=== PATIENT | female | born 1990 | race Caucasian/White ===

== ENCOUNTER → 2018-07-12 | Outpatient (CLI) | payer OTHER ==
--- NOTE | 2018-07-12 11:41 | USB ---
Reason for exam: clinical finding. History: Took hormonal contraceptives beginning at age 17. Indicated problem(s): palpable abnormality, lump or thickening, and large axillary lymph nodes in the right breast. Physical Findings: Nurse Summary: 0.25cm at 3 o'clock, 1.5cm at 10 o'clock, enlarged axilla lymph nod (nurse dw). US Breast RT Right complete breast ultrasound includes all four quadrants, the retroareolar region and axilla. Finding demonstrates a 7 x 3 x 8mm oval, cystic lesion at 3 o'clock BB. Two lymph nodes visualized at right axilla, largest measuring 2.0 x 0.7 x 0.7cm. These results were verbally communicated with the patient and result sheet given to the patient on 07/12/18. ASSESSMENT: Benign, BI-RAD 2 RECOMMENDATION: Routine screening mammogram of both breasts at age 41. Manage patient on a clinical basis.
== END | disposition home or self-care (01) ==
LOC: RADUSWWP 10:48
PROVIDERS: ATTEND Obstetrics & Gynecology
DX: N60.01 Solitary cyst of right breast (principal)

== ENCOUNTER 2019-01-22 13:24 | Inpatient (IN) | payer OTHER ==
[2019-01-29] MEDS ORDERED: LIDOCAINE 0.5% (PF) 5 MG/ML (50 ML SDV) SQ PRN (06:29)
[2019-01-29] MEDS ORDERED: TERBUTALINE 1 MG/ML VIAL SQ PRN (06:29)
[2019-01-29] MEDS ORDERED: OXYTOCIN 10 UNIT/ML 1 ML VIAL IM PRN (06:29)
[2019-01-29] MEDS ORDERED: CARBOPROST TROMETHAMINE 250 MCG/ML 1 ML AMP IM PRN (06:29)
[2019-01-29] MEDS ORDERED: METHYLERGONOVINE 0.2 MG/ML 1 ML AMP IM PRN (06:29)
[2019-01-29] MEDS ORDERED: OXYTOCIN 30 UNITS/500 ML NS 30 UNIT in SALINE 1 500ML.BAG IV SCH (06:30)
[2019-01-29 06:41] VITALS: BMI 26.4
[2019-01-29 06:48] LABS: Basophils # (A) 0.1 k/uL (0-0.2); Basophils % (A) 1 %; Eosinophils # (A) 0.2 k/uL (0-0.7); Eosinophils % (A) 2 %; HCT 38.4 % (34.0-46.0); HGB 12.8 gm/dL (11.4-16.0); Lymphocytes # (A) 1.9 k/uL (1.0-4.8); Lymphocytes % (A) 20 %; MCH 29.7 pg (25.0-35.0); MCHC 33.2 g/dL (31.0-37.0); MCV 89.5 fL (80.0-100.0); Mean Platelet Volume 8.9; Monocytes # (A) 0.5 k/uL (0-1.0); Monocytes % (A) 5 %; Neutrophils % (A) 71 %; Platelet Count 139 k/uL (150-450); RDW 14.1 % (11.5-15.5); WBC 9.9 k/uL (3.8-10.6)
[2019-01-29] MEDS: LACTATED RINGERS 1,000 ML IV SCH ×2 (06:52→14:00)
--- NOTE | 2019-01-29 07:58 | P.HPOB ---
History of Present Illness H&P Date: 01/29/19 Chief Complaint: Postdates This is a 28-year-old 1 para 0 woman with an estimated due date of 01/22/2019 based on LMP consistent with second trimester ultrasound who presents for a postdates induction of labor at 41 weeks gestation. Her has been uncomplicated. She had evidence of a low-lying placenta at 20 weeks but this resolved by 29 week ultrasound. She had no abnormal bleeding. Upon presentation today she reports she is feeling well. She has some lower extremity edema. She denies contractions, vaginal bleeding or leakage of fluids. She has had good movement. Laboratory data: Blood type A positive, antibody screen negative, rubella immune, VDRL nonreactive, hepatitis B surface antigen negative, HIV negative, glucose tolerance testing within normal limits, group B strep negative Review of Systems All systems: negative Past Medical History Past Medical History: No Reported History History of Any Multi-Drug Resistant Organisms: None Reported Past Surgical History: No Surgical Hx Reported Past Anesthesia/Blood Transfusion Reactions: No Reported Reaction Additional Past Anesthesia/Blood Transfusion Reaction / Comment(s): nausea after wisdom teeth Past Psychological History: No Psychological Hx Reported Smoking Status: Never smoker Past Alcohol Use History: Occasional Past Drug Use History: None Reported - Past Family History Father Family Medical History: No Reported History Medications and Allergies Home Medications Medication Instructions Recorded Confirmed Type Pnv No.95/Ferrous Fum/Folic AC 1 each PO DAILY 01/29/19 01/29/19 History [ Multivitamin Tablet] Allergies Allergy/AdvReac Type Severity Reaction Status Date / Time amoxicillin Allergy Rash/Hives Verified 01/26/19 08:19 cephalexin monohydrate Allergy Rash/Hives Verified 01/26/19 08:19 [From Keflex] Exam Vital Signs Temp Pulse Resp BP Pulse Ox 01/29/19 06:33 97.4 F L 94 18 129/84 95 Intake and Output 01/28/19 01/29/19 01/29/19 22:59 06:59 14:59 Other: Weight 69.853 kg Targeted physical exam is performed. This is a pleasant visibly gravid female in no obvious distress. The abdomen is gravid with fundal height consistent with gestational age. heart tones are category 1. She is not lila. On cervical examination she has 1.5 cm dilated, 60% effaced and the vertex is in the -2 station. She has 2+ edema of the lower extremities. Results Result Diagrams: 01/29/19 06:30 Abnormal Lab Results - Last 24 Hours (Table) 01/29/19 Range/Units 06:30 Plt Count 139 L (150-450) k/uL Assessment and Plan (1) Post-dates Current Visit: Yes Status: Acute Code(s): O48.0 - POST-TERM SNOMED Code(s): 57672647 Plan: 28-year-old 1 para 0 woman admitted at 41 weeks for postdates induction of labor. Pitocin induction is been initiated per protocol. Artificial rupture of membranes when possible. status currently reassuring. She is group B strep negative and Rh+. Of note platelets are 139,000, and the anesthesiology team will be notified should she choose to request an epidural anesthetic.
[2019-01-29] MEDS ORDERED: BUTORPHANOL 1 MG/ML 1 ML VIAL IV PRN (12:08)
[2019-01-29] MEDS ORDERED: fentaNYL (PF) 50 MCG/ML 5 ML AMP ONE (14:15)
[2019-01-29] MEDS ORDERED: ROPIVACAINE 5MG/ML 20ML VIAL ONE (14:15)
[2019-01-29] MEDS ORDERED: SODIUM CHLORIDE 0.9% 100 ML BAG ONE (14:15)
[2019-01-29] MEDS ORDERED: diphenhydrAMINE 25 MG CAP PO PRN (21:17)
[2019-01-29] MEDS ORDERED: diphenhydrAMINE 50 MG/ML 1 ML VIAL IVP PRN ×2 (21:17)
[2019-01-29] MEDS ORDERED: LANOLIN CREAM 5 GM TUBE TOPICAL PRN (21:17)
[2019-01-29] MEDS ORDERED: ZOLPIDEM 5 MG TAB PO PRN (21:17)
[2019-01-29] MEDS ORDERED: WITCH HAZEL 1 EACH MED..PAD TOPICAL PRN (21:17)
[2019-01-29] MEDS ORDERED: HYDROCORTISONE 2.5% RECTAL CREAM 30 GM TUBE RECTAL PRN (21:17)
[2019-01-29] MEDS ORDERED: BENZOCAINE/MENTHOL SPRAY 1 GM/SPRAY AEROSOL TOPICAL PRN (21:17)
[2019-01-29] MEDS ORDERED: SIMETHICONE 80 MG CHEWABLE PO PRN (21:17)
[2019-01-29] MEDS ORDERED: diphenhydrAMINE 50 MG CAP PO PRN (21:17)
--- NOTE | 2019-01-29 21:17 | P.PROBDLV ---
Vaginal Delivery Note - . Vaginal Delivery Note: Findings: Female in the left occiput anterior position with Apgars of 9 at 1 minute and 10 at 5 minutes weighing 7 lbs. 14 oz., 3575 g. Intact, three- vessel cord placenta with significant calcifications. Second-degree perineal laceration and right labial abrasions. Uterine atony with EBL of 400 mL's. Delivery summary: This is a 28-year-old 1 para 0 woman who was admitted at 41 weeks gestation for postdates induction of labor. Following admission she underwent a Pitocin induction of labor with artificial rupture of membranes. She had clear fluid. She had an unremarkable first stage of labor during which she received an epidural anesthetic. She reached complete cervical dilation after an approximately 10 hour first stage of labor. She commenced pushing however her initial our was ineffective secondary to dense epidural which was eventually turned off. She continued pushing and eventually push to . She had reassuring heart tones throughout the second stage of labor. With she was repositioned and prepped in the modified Zaira position. With additional maternal effort the head did from the left occiput anterior position. The anterior followed by the posterior shoulders were delivered rapidly and the rest of the was delivered onto the field. The nose and mouth were bulb suctioned. The was made placed on the maternal abdomen and after a period of time the cord was clamped and cut. Apgars were 9 at 1 minute and 10 at 5 minutes. The perineum was inspected and a second-degree laceration was noted. This was infused with lidocaine and repaired with 3-0 Vicryl suture. An intact, three-vessel cord placenta was then expressed after an approximately 8 minute third stage of labor. There was immediate uterine atony that was managed by intravenous Pitocin and bimanual massage. Some clot and debris was expressed from the low uterine segment and the atony did improve. The vagina was reinspected and no further lacerations were noted to be bleeding. She continued to have some moderate atony and IM Methergine was administered. This improved her uterine tone significantly. Total EBL was approximately 400 mL's. Following delivery the uterus eventually was firm and 3 fingerbreadths below the umbilicus. Both mother and infant were doing well post delivery in the room. All counts were correct.
[2019-01-29] MEDS ORDERED: ROPIVACAINE 100 MG, fentaNYL (PF) 200 MCG in SODIUM CHLORIDE 0.9% 76 ML EPIDURAL ONE (21:23)
[2019-01-29] MEDS ORDERED: OXYTOCIN 20 UNITS/1000 ML NS 1,000 ML IV SCH (21:30)
[2019-01-29] MEDS: IBUPROFEN 600 MG TAB PO PRN (21:39)
[2019-01-30] MEDS: LACTATED RINGERS 1,000 ML IV SCH (00:26)
[2019-01-30 07:05] LABS: Basophils % (A) 0 %; Eosinophils # (A) 0.1 k/uL (0-0.7); Eosinophils % (A) 0 %; HCT 33.8 % (34.0-46.0); HGB 11.4 gm/dL (11.4-16.0); Lymphocytes # (A) 1.5 k/uL (1.0-4.8); Lymphocytes % (A) 8 %; MCH 30.1 pg (25.0-35.0); MCHC 33.6 g/dL (31.0-37.0); MCV 89.6 fL (80.0-100.0); Mean Platelet Volume 9.5; Monocytes # (A) 0.8 k/uL (0-1.0); Monocytes % (A) 4 %; Neutrophils # (A) 16.4 k/uL (1.3-7.7); Neutrophils % (A) 86 %; Platelet Count 147 k/uL (150-450); RBC 3.77 m/uL (3.80-5.40)
[2019-01-30] MEDS: SENNOSIDES-DOCUSATE SODIUM 1 EACH TAB PO SCH ×2 (07:52→20:05)
[2019-01-30] MEDS: ACETAMINOPHEN TAB 325 MG TAB PO PRN ×3 (07:52→20:06)
[2019-01-30] MEDS ORDERED: SENNA LEAF EXTRACT SYRUP 528 MG/15 ML CUP PO SCH (08:00)
--- NOTE | 2019-01-30 08:28 | P.PNOBGVD ---
Subjective - Subjective Principal diagnosis: day 1 Interval history: Heavy lochia throughout the night but decreasing this morning. Patient reports: Reports appetite normal, Reports voiding normally, Reports pain well controlled, Reports ambulating normally, Denies dizzy ambulation [place]: doing well, nursing well Objective - Latest Vital Signs Latest vital signs: Vital Signs Temp Pulse Resp BP Pulse Ox 01/30/19 07:57 98.3 F 72 14 104/68 01/30/19 04:00 98.1 F 79 16 114/63 01/30/19 00:00 20 01/29/19 23:00 98.8 F 75 18 119/65 01/29/19 22:29 98.8 F 68 16 110/74 01/29/19 22:00 99.0 F 80 18 01/29/19 21:45 98.5 F 77 18 115/63 97 01/29/19 21:34 98.8 F 76 18 119/66 98 01/29/19 21:26 98.1 F 80 18 118/63 99 01/29/19 21:15 97.9 F 74 18 110/58 100 Intake and Output 01/29/19 01/30/19 01/30/19 22:59 06:59 14:59 Intake Total 1000 480 Balance 1000 480 Intake: IV 1000 Oxytocin 20 Units/1000 ml 1000 Ns 1,000 ml @ Per Protocol IV .Q0M ON LICENSE OF [facility] Rx#: [id number] Oral 480 Other: Voiding Method Toilet # Voids 1 - Exam Extremities: Present: normal, edema Abdomen: Present: normal appearance, soft. Absent: distention, tenderness Uterus: Present: normal, firm - Labs Labs: Abnormal Lab Results - Last 24 Hours (Table) 01/30/19 Range/Units 06:37 WBC 19.0 H (3.8-10.6) k/uL RBC 3.77 L (3.80-5.40) m/uL Hct 33.8 L (34.0-46.0) % Plt Count 147 L (150-450) k/uL Neutrophils # 16.4 H (1.3-7.7) k/uL Assessment and Plan (1) Post-dates Current Visit: Yes Status: Acute Code(s): O48.0 - POST-TERM SNOMED Code(s): 69878681 (2) Normal spontaneous vaginal delivery Current Visit: Yes Status: Acute Code(s): O80 - ENCOUNTER FOR FULL-TERM UNCOMPLICATED DELIVERY SNOMED Code(s): 45525396 (3) Perineal laceration with delivery, second degree Current Visit: Yes Status: Acute Code(s): O70.1 - SECOND DEGREE PERINEAL LACERATION DURING DELIVERY SNOMED Code(s): 7212614 (4) Uterine atony Current Visit: Yes Status: Acute Code(s): O62.2 - OTHER UTERINE INERTIA SNOMED Code(s): 3554858 Plan: day #1 status post normal spontaneous vaginal delivery complicated by uterine atony. Moderate to heavy lochia still this morning but her uterus is firm. Postdelivery hemoglobin is greater than 11 and She is asymptomatic. We'll continue to monitor throughout the day and she is encouraged to continue to breast-feed. Anticipate probable discharge home tomorrow.
[2019-01-30] MEDS: IBUPROFEN 600 MG TAB PO PRN ×3 (10:38→23:03)
[2019-01-31] MEDS: ACETAMINOPHEN TAB 325 MG TAB PO PRN (01:14)
[2019-01-31] MEDS ORDERED: IBUPROFEN 600 MG TAB PO ONE (04:35)
--- NOTE | 2019-01-31 08:06 | P.DS ---
Providers Date of admission: 01/29/19 06:06 Expected date of discharge: 01/31/19 Attending physician: Rosaline Dorsey Primary care physician: Stated None - Discharge Diagnosis(es) (1) Post-dates Current Visit: Yes Status: Acute (2) Normal spontaneous vaginal delivery Current Visit: Yes Status: Acute (3) Perineal laceration with delivery, second degree Current Visit: Yes Status: Acute (4) Uterine atony Current Visit: Yes Status: Acute Hospital Course: This is 28-year-old 1 now para 1 woman who is admitted for postdates induction of labor at 41 weeks gestation. Following admission she underwent a Pitocin induction of labor with artificial rupture of membranes. She received an epidural anesthetic. She had an approximately 12 hour first stage of labor. She had a 2-1/2 hour second stage of labor to deliver deliver eventually a liveborn female over second-degree perineal laceration. Please see the delivery summary for details. The patient's course was unremarkable. She did have some mild uterine atony following her delivery however her hemoglobin and hematocrit were within normal limits. Her vital signs were stable. By day #1 her lochia had significantly decreased and she was breast-feeding successfully. By day #2 she continued to do very well with minimal lochia. Her vital signs were stable. Her perineum was well healing. She was therefore discharged home with routine instructions for care and follow-up. Procedures: Normal spontaneous vaginal delivery Repair of perineal laceration Patient Condition at Discharge: Good Plan - Discharge Summary New Discharge Prescriptions: No Action Pnv No.95/Ferrous Fum/Folic AC [ Multivitamin Tablet] 1 each PO DAILY Discharge Medication List Pnv No.95/Ferrous Fum/Folic AC [ Multivitamin Tablet] 1 each PO DAILY 01/29/19 [History] Follow up Appointment(s)/Referral(s): Rosaline Dorsey MD [STAFF PHYSICIAN] - 6 Weeks Activity/Diet/Wound Care/Special Instructions: Follow-up in the office in 6 weeks . Call with any concerning signs or symptoms including heavy vaginal bleeding, severe abdominal pain, fever greater than 101, swelling or redness of the lower extremities, foul vaginal discharge, or signs of depression. Nothing in the vagina for 6 weeks after delivery, specifically no intercourse. May use [id number] ibuprofen and/or Tylenol as needed for pain. Discharge Disposition: HOME SELF-CARE
[2019-01-31 08:55] VITALS: BP 100/77; PULSE 97; RESP 16; TEMP 98.1
[2019-01-31] MEDS: SENNOSIDES-DOCUSATE SODIUM 1 EACH TAB PO SCH (09:17)
== END 2019-01-31 09:50 | disposition home or self-care (01) | DRG 807 ==
LOC: 4FBP 01-29 06:06
PROVIDERS: ADMIT Obstetrics & Gynecology; ATTEND Obstetrics & Gynecology
PROC: 10E0XZZ Delivery of Products of Conception, External Approach (ICD-10-PCS; principal; 2019-01-29)
PROC: 0KQM0ZZ Repair Perineum Muscle, Open Approach (ICD-10-PCS; 2019-01-29)
PROC: 3E033VJ Introduction of Other Hormone into Peripheral Vein, Percutaneous Approach (ICD-10-PCS; 2019-01-29)
PROC: 10907ZC Drainage of Amniotic Fluid, Therapeutic from Products of Conception, Via Natural or Artificial Opening (ICD-10-PCS; 2019-01-29)
PROC: 00HU33Z Insertion of Infusion Device into Spinal Canal, Percutaneous Approach (ICD-10-PCS; 2019-01-29)
PROC: 3E0R3BZ Introduction of Anesthetic Agent into Spinal Canal, Percutaneous Approach (ICD-10-PCS; 2019-01-29)
DX: O48.0 Post-term pregnancy (principal); Z37.0 Single live birth; O62.2 Other uterine inertia; Z3A.41 41 weeks gestation of pregnancy; O70.1 Second degree perineal laceration during delivery; O70.0 First degree perineal laceration during delivery; Z79.899 Other long term (current) drug therapy; Z88.1 Allergy status to other antibiotic agents
CPT/HCPCS: 85025; 86850; 86900; 86901

== ENCOUNTER 2019-01-26 08:12 | Outpatient (CLI) | payer OTHER ==
[2019-01-26 08:28] VITALS: BP 117/74; PULSE 87; RESP 16; TEMP 97.2
--- NOTE | 2019-02-12 10:27 | P.MSEPDOC ---
Presenting Problems - Arrival Data Date of Arrival on Unit: 01/29/19 Time of Arrival on Unit: 06:00 Mode of Transport: Ambulatory - Complaint OB-Reason for Admission/Chief Complaint: NST Medical History - Information : 1 Para: 0 Term: 0 : 0 Abortions: Spontaneous or Elective: 0 Number of Living Children: 0 - Gestational Age Gestational Age by SHANIA (wks/days): 41 Weeks and 0 Days Review of Systems - Review of Systems Constitutional: No problems Breast: No problems ENT: No problems Cardiovascular: No problems Respiratory: Wheezing Gastrointestinal: No problems Genitourinary: No problems Musculoskeletal: No problems Neurological: No problems Skin: No problems Comment: has hx of asthma- does not need inhaler Vital Signs - Temperature Temperature: 97.2 F Temperature Source: Temporal Artery Scan - Pulse Pulse Oximetery Pulse Rate: 87 Pulse Assessment Method: Automatic Cuff - Respirations Respiratory Rate: 16 Oxygen Delivery Method: Room Air - Blood Pressure Right Arm Blood Pressure: 117/74 Blood Pressure Mean: 88 Blood Pressure Source: Automatic Cuff Medical Screen Scoring (Pre) - Cervical Exam Dilation: Exam Deferred Effacement: Exam Deferred Membranes: Intact - Uterine Contractions Frequency: N/A Duration: N/A Intensity: N/A - Maternal Vital Signs Maternal Temperature: N/A Maternal Blood Pressure: N/A Signs of Preeclampsia: N/A Maternal Respirations: N/A - Maternal Trauma Maternal Trauma: N/A - Assessment - Baby A Baseline FHR: 135 Heart Rate - NICHD Category: Category I (Normal) = 0 NST: Reactive Position: N/A - Total Score - Baby A Total Score - Baby A: 0 - Total Score - Baby B Total Score - Baby B: 0 - Total Score - Baby C Total Score - Baby C: 0 - Level of Risk - Baby A Level of Risk - Baby A: Low (0-5) - Level of Risk - Baby B Level of Risk - Baby B: Low (0-5) - Level of Risk - Baby C Level of Risk - Baby C: Low (0-5) - Pain Assessment Pain Scale Used: Numeric (1 - 10) Pain Intensity: 0 Physician Notification (Pre) - Physician Notified Physician Notified Date: 01/26/19 Physician Notified Time: 08:30 Physician/Practitioner Notifed:: Dr Hurtubise New Order Received: Yes Disposition - Disposition OB Disposition: Discharge to home, Written follow up instructions reviewed Discharge Date: 01/26/19 Discharge Time: 08:35 I agree with the RN Medical Screening Exam: Yes Risk & Benefit of care provided described in d/c instruction: Yes Diagnosis: 41 WEEKS GESTATION OF
== END 2019-01-26 08:35 | disposition home or self-care (01) ==
LOC: FBPOP 08:12
PROVIDERS: ATTEND Obstetrics & Gynecology
DX: O26.893 Other specified pregnancy related conditions, third trimester (principal); Z3A.41 41 weeks gestation of pregnancy
CPT/HCPCS: 59025

== ENCOUNTER → 2022-06-03 | Outpatient (CLI) | payer OTHER | END | disposition home or self-care (01) | LOC: LABWHC1 08:39 | PROVIDERS: ATTEND Obstetrics & Gynecology | DX: Z36.9 Encounter for antenatal screening, unspecified (principal) | CPT/HCPCS: 36415; 82950 ==

== ENCOUNTER 2022-09-07 02:54 | Inpatient (IN) | payer OTHER ==
[2022-09-07] MEDS ORDERED: OXYTOCIN 30 UNITS/500 ML NS 30 UNIT in SALINE 1 500ML.BAG IV SCH ×2 (03:45→12:00)
[2022-09-07] MEDS ORDERED: TERBUTALINE 1 MG/ML VIAL SQ PRN (03:45)
[2022-09-07] MEDS ORDERED: METHYLERGONOVINE 0.2 MG/ML 1 ML AMP IM PRN (03:45)
[2022-09-07] MEDS ORDERED: CARBOPROST TROMETHAMINE 250 MCG/ML 1 ML AMP IM PRN (03:45)
[2022-09-07] MEDS ORDERED: TRANEXAMIC ACID IN NACL,ISO-OS 1,000 MG in EMPTY BAG 1 BAG IV PRN (03:45)
[2022-09-07] MEDS ORDERED: OXYTOCIN 10 UNIT/ML 1 ML VIAL IM PRN (03:45)
[2022-09-07] MEDS ORDERED: miSOPROStoL 200 MCG TAB PO PRN (03:45)
[2022-09-07] MEDS ORDERED: LIDOCAINE 0.5% (PF) 5 MG/ML (50 ML SDV) SQ PRN (03:45)
[2022-09-07] MEDS: LACTATED RINGERS 1,000 ML IV SCH ×3 (03:58→20:58)
[2022-09-07 04:28] LABS: Basophils % (A) 0 %; Eosinophils # (A) 0.1 k/uL (0-0.7); Eosinophils % (A) 1 %; HCT 39.2 % (34.0-46.0); HGB 13.7 gm/dL (11.4-16.0); Lymphocytes # (A) 1.6 k/uL (1.0-4.8); Lymphocytes % (A) 12 %; MCH 30.4 pg (25.0-35.0); MCHC 34.8 g/dL (31.0-37.0); MCV 87.3 fL (80.0-100.0); Mean Platelet Volume 9.6; Monocytes # (A) 0.5 k/uL (0-1.0); Monocytes % (A) 4 %; Neutrophils # (A) 10.9 k/uL (1.3-7.7); Neutrophils % (A) 81 %; Platelet Count 156 k/uL (150-450); RDW 14.1 % (11.5-15.5); WBC 13.6 k/uL (3.8-10.6)
--- NOTE | 2022-09-07 09:33 | P.HPOB ---
History of Present Illness H&P Date: 09/07/22 Chief Complaint: Labor at 41 weeks This is a 32-year-old 2 para 1001 woman with an estimated due date of 08/31/2022 who presents at 41 weeks gestation in spontaneous active labor. She's had an uncomplicated . She reports onset of regular uterine contractions at approximately midnight that progressed leading her to come in to the hospital. She progressed from 4-5 cm during observation and was admitted. She denies rupture of membranes or vaginal bleeding. She's been followed in the office with post dates testing which has been reassuring. Past medical history significant for asthma and abnormal Pap smear Laboratory data: Blood type A+, antibody screen negative, rubella immune, VDRL nonreactive, hepatitis B surface antigen negative, HIV negative, gonorrhea and clinic cultures none negative, glucose tolerance testing within normal limits, group B strep negative. Obstetric history: Normal spontaneous vaginal delivery at 41 weeks of a 7 lbs. 14 oz. in 2019 Review of Systems All systems: negative Past Medical History Past Medical History: Asthma History of Any Multi-Drug Resistant Organisms: None Reported Past Surgical History: No Surgical Hx Reported Past Anesthesia/Blood Transfusion Reactions: No Reported Reaction Additional Past Anesthesia/Blood Transfusion Reaction / Comment(s): nausea after wisdom teeth Past Psychological History: No Psychological Hx Reported Smoking Status: Never smoker Past Alcohol Use History: Occasional Past Drug Use History: None Reported - Past Family History Father Family Medical History: No Reported History Medications and Allergies Home Medications Medication Instructions Recorded Confirmed Type Pnv No.95/Ferrous Fum/Folic AC 1 each PO DAILY 01/29/19 09/07/22 History [ Multivitamin Tablet] Allergies Allergy/AdvReac Type Severity Reaction Status Date / Time amoxicillin Allergy Rash/Hives Verified 09/07/22 02:57 cephalexin monohydrate Allergy Rash/Hives Verified 09/07/22 02:57 [From Keflex] Penicillins Allergy Rash/Hives Verified 09/07/22 02:57 Exam Vital Signs Temp Pulse Resp BP Pulse Ox 09/07/22 03:18 97.4 F L 85 15 130/74 100 09/07/22 02:55 97.4 F L 85 16 130/74 Intake and Output 09/06/22 09/07/22 09/07/22 22:59 06:59 14:59 Other: # Voids 2 Weight 70.76 kg This is a visibly gravid female who is actively laboring. Targeted physical exam is performed. Cervix is 8 cm dilated, 80% effaced vertex in the - 2 station. Artificial rupture of membranes is undertaken and clear fluid is noted. heart tones are category 1 and she is lila every 3-5 minutes spontaneously. Results Result Diagrams: 09/07/22 03:40 Abnormal Lab Results - Last 24 Hours (Table) 09/07/22 Range/Units 03:40 WBC 13.6 H (3.8-10.6) k/uL Neutrophils # 10.9 H (1.3-7.7) k/uL Assessment and Plan (1) Post-dates Current Visit: No Status: Acute Code(s): O48.0 - POST-TERM SNOMED Code(s): 76678343 (2) Spontaneous onset of labor Current Visit: Yes Status: Acute Code(s): FFG1501 - SNOMED Code(s): 20617960 Plan: 32-year-old 2 para 1 woman admitted at 41 weeks gestation in spontaneous active labor. Group B strep negative and Rh+. status currently reassuring. Anticipate normal spontaneous vaginal delivery.
[2022-09-07] MEDS ORDERED: ZOLPIDEM 5 MG TAB PO PRN (11:48)
[2022-09-07] MEDS ORDERED: diphenhydrAMINE 25 MG CAP PO PRN (11:48)
[2022-09-07] MEDS ORDERED: HYDROCORTISONE 2.5% RECTAL CREAM 30 GM TUBE RECTAL PRN (11:48)
[2022-09-07] MEDS ORDERED: BENZOCAINE/MENTHOL SPRAY 1 GM/SPRAY AEROSOL TOPICAL PRN (11:48)
[2022-09-07] MEDS ORDERED: diphenhydrAMINE 50 MG/ML 1 ML VIAL IVP PRN ×2 (11:48)
[2022-09-07] MEDS ORDERED: LANOLIN CREAM 5 GM TUBE TOPICAL PRN (11:48)
[2022-09-07] MEDS ORDERED: diphenhydrAMINE 50 MG CAP PO PRN (11:48)
[2022-09-07] MEDS ORDERED: SIMETHICONE 80 MG CHEWABLE PO PRN (11:48)
[2022-09-07] MEDS ORDERED: IBUPROFEN ORAL SUSP 100 MG/5 ML CUP PO PRN (11:48)
--- NOTE | 2022-09-07 11:48 | P.PROBDLV ---
Vaginal Delivery Note - . Vaginal Delivery Note: Findings: Female in the vertex direct occiput anterior position with Apgars of 8 at 1 minute and 9 at 5 minutes weighing 8 lbs. 8 oz., 3880 g. Mild shoulder dystocia. EBL 350 mL's. Second-degree perineal laceration. Intact, calcified three-vessel cord placenta. Delivery summary: This is a 32-year-old 2 para 1 woman who was admitted at 41 weeks gestation in spontaneous active labor. On presentation she was 5 cm and she did progress to 8 cm at which time artificial rupture of membranes was undertaken. Clear fluid was noted. She then progressed to complete cervical dilation and commenced pushing with excellent maternal effort. With she was repositioned, prepped and draped in the dorsal modified Zaira position. With additional maternal effort the head did deliver on from the direct occiput anterior position. The there was an immediate "turtle sign". The anterior shoulder was attempted to be delivered under the pubic bone with gentle pressure however was found that the shoulders were transverse. The infant was then rotated to the left shoulder anterior position while in Zaira position. Suprapubic pressure was undertaken and this facilitated rapid delivery of the . Duration of dystocia was less than 30 seconds. The rest the infant was delivered onto the field without difficulty. The nose and mouth were bulb suctioned. The cord was clamped and cut and Apgars were 8 at 1 minute and 9 at 5 minutes. An intact, three-vessel cord placenta was then expressed after an approximately 5 minute third stage of labor. The placenta was noted to be calcified. The uterus was mildly atonic and this was resolved with Pitocin intravenously and bimanual massage. She did receive 1 dose of Methergine IM. EBL was approximately 350 mL. Lidocaine was infused in the perineum and the perineal laceration was repaired with 3-0 Vicryl suture in the usual fashion. The rest of the vagina and cervix were inspected and no further lacerations were noted. All counts were correct and both mother and infant were doing well post delivery in the room.
[2022-09-07] MEDS: IBUPROFEN 600 MG TAB PO PRN ×2 (12:15→18:30)
[2022-09-07] MEDS: ACETAMINOPHEN TAB 325 MG TAB PO PRN (15:49)
[2022-09-07] MEDS: SENNOSIDES-DOCUSATE SODIUM 1 EACH TAB PO SCH (20:58)
[2022-09-08 00:31] VITALS: RESP 18
[2022-09-08] MEDS: ACETAMINOPHEN TAB 325 MG TAB PO PRN ×2 (00:58→08:46)
[2022-09-08] MEDS: IBUPROFEN 600 MG TAB PO PRN (03:37)
[2022-09-08] MEDS: LACTATED RINGERS 1,000 ML IV SCH (04:18)
[2022-09-08 05:29] LABS: Basophils # (A) 0.1 k/uL (0-0.2); Basophils % (A) 0 %; Eosinophils # (A) 0.1 k/uL (0-0.7); Eosinophils % (A) 1 %; HCT 35.3 % (34.0-46.0); HGB 11.9 gm/dL (11.4-16.0); Lymphocytes # (A) 1.7 k/uL (1.0-4.8); Lymphocytes % (A) 10 %; MCH 29.8 pg (25.0-35.0); MCHC 33.7 g/dL (31.0-37.0); MCV 88.5 fL (80.0-100.0); Mean Platelet Volume 9.2; Monocytes % (A) 6 %; Neutrophils # (A) 14.4 k/uL (1.3-7.7); Neutrophils % (A) 82 %; Platelet Count 172 k/uL (150-450); RBC 3.99 m/uL (3.80-5.40); RDW 13.8 % (11.5-15.5); WBC 17.5 k/uL (3.8-10.6)
--- NOTE | 2022-09-08 08:06 | P.DS ---
Providers Date of admission: 09/07/22 03:17 Expected date of discharge: 09/08/22 Attending physician: Rosaline Dorsey Primary care physician: Stated None - Discharge Diagnosis(es) (1) Post-dates Current Visit: No Status: Acute (2) Spontaneous onset of labor Current Visit: Yes Status: Acute (3) Normal spontaneous vaginal delivery Current Visit: No Status: Acute (4) Perineal laceration with delivery, second degree Current Visit: No Status: Acute Hospital Course: Is a 32-year-old 2 now para 2 woman who is admitted at 41 weeks [facility] in spontaneous active labor. She was 5 cm on admission. She progressed to 8 cm dilated at which time artificial rupture of membranes is undertaken. She went on to deliver a liveborn male infant over a second-degree perineal laceration. There was a mild shoulder dystocia encountered. This was resolved using Zaira position and suprapubic pressure with rotation. Please see the delivery summary for details. Patient's course was unremarkable. By day #1 she was ambulating and voiding without difficulty. She is breast-feeding successfully. Her lochia was decreasing and she was tolerating a general diet. She did have a moderately elevated white blood cell count on day #1 however she was afebrile and asymptomatic. was doing well with no evidence of injury from the mild shoulder dystocia. She was therefore discharged home on day #1 with routine instructions for care and follow-up. Patient Condition at Discharge: Good Plan - Discharge Summary New Discharge Prescriptions: No Action Pnv No.95/Ferrous Fum/Folic AC [ Multivitamin Tablet] 1 each PO DAILY Discharge Medication List Pnv No.95/Ferrous Fum/Folic AC [ Multivitamin Tablet] 1 each PO DAILY 01/29/19 [History] Follow up Appointment(s)/Referral(s): Rosaline Dorsey MD [STAFF PHYSICIAN] - 6 Weeks Activity/Diet/Wound Care/Special Instructions: Follow-up in the office in 6 weeks . Call with any concerning signs or symptoms including heavy vaginal bleeding, severe abdominal pain, fever greater than 101, swelling or redness of the lower extremities, foul vaginal discharge, or signs of depression. Nothing in the vagina for 6 weeks after delivery, specifically no intercourse. Discharge Disposition: HOME SELF-CARE
[2022-09-08 08:21] VITALS: BP 94/58; PULSE 81; TEMP 97.9
[2022-09-08] MEDS: SENNOSIDES-DOCUSATE SODIUM 1 EACH TAB PO SCH (08:46)
== END 2022-09-08 14:00 | disposition home or self-care (01) | DRG 807 ==
LOC: FBPOP 02:54 → 4FBP 03:17
PROVIDERS: ADMIT Obstetrics & Gynecology; ATTEND Obstetrics & Gynecology
PROC: 10E0XZZ Delivery of Products of Conception, External Approach (ICD-10-PCS; principal; 2022-09-07)
PROC: 0KQM0ZZ Repair Perineum Muscle, Open Approach (ICD-10-PCS; 2022-09-07)
DX: O48.0 Post-term pregnancy (principal); Z37.0 Single live birth; J45.909 Unspecified asthma, uncomplicated; O66.0 Obstructed labor due to shoulder dystocia; O70.1 Second degree perineal laceration during delivery; O99.52 Diseases of the respiratory system complicating childbirth; Z3A.41 41 weeks gestation of pregnancy
CPT/HCPCS: 85025; 86850; 86900; 86901; 99213